=== PATIENT | female | born 1960 | race African-American/Black ===

== ENCOUNTER 2016-09-28 06:16 | Day surgery (SDC) | payer BC ==
--- NOTE | ~2016-09-28 | OP ---
Record Of Operation [facility] [address] [facility] [place]. [address] NAME: KODY GAUTHIER : 58 STATUS : REG [facility]#: [id number] AGE: 56 ADM/REG DATE : 09/28/16 MR#: [id number] REPORT SERV DATE: 09/28/16 DICTATED BY: MARISEL ALEXANDRE DATE: 09/28/16 REPORT STATUS : Draft TRANSCRIBED BY: MODL DATE: 09/28/16 DATE OF PROCEDURE: 09/28/2016 SURGEON: Marisel Alexandre MD. SERVICE: Otolaryngology. PREOPERATIVE DIAGNOSIS: Poorly-differentiated thyroid carcinoma. POSTOPERATIVE DIAGNOSIS: Poorly differentiated thyroid carcinoma. PROCEDURES PERFORMED: 1. Right completion thyroidectomy. 2. Central neck dissection. 3. NIMs monitoring. INDICATIONS FOR PROCEDURE: The patient is a 56-year-old female with a recent diagnosis of poorly-differentiated thyroid carcinoma status post left lobectomy in August 2016. She has undergone workup including PET-CT scan as well as bilateral FNA biopsies of level 2 lymph nodes in her neck. There is no evidence of distant metastasis at this time. She presents for completion thyroidectomy as well as central neck dissection. ANESTHESIA: General endotracheal with NIMs monitoring system. ESTIMATED BLOOD LOSS: 20 mL. RETAINED ITEMS: None. COMPLICATIONS: None. SPECIMENS: 1. Right hemithyroid. 2. Central compartment lymph nodes. DESCRIPTION OF PROCEDURE: The patient was identified in the preoperative holding, where informed consent was ensured. She was brought to the operating room, placed on the operating table in supine position. General endotracheal anesthesia was induced with a GlideScope, and direct placement of NIMs monitoring system was confirmed. A time-out was performed to identify the patient and discuss operative plan. The patient was prepped and draped in the standard sterile surgical fashion for this procedure. Prior to proceeding, ground electrodes were placed in the patient's anterior chest wall and secured with adhesive. The NIMs monitor electrodes were affixed into the appropriate channels. The left and right larynx were finger-tapped and responded appropriately with audible sound. The NIMs monitoring system was used for the remainder of the procedure to monitor activity of the recurrent laryngeal nerves. Record Of Operation [facility] 5 [facility] [place]. [address] NAME: KODY GAUTHIER : 58 STATUS : [place] [facility] [place] [id number] AGE: 56 ADM/REG DATE : 09/28/16 MR#: [id number] REPORT SERV DATE: 09/28/16 DICTATED BY: MARISEL ALEXANDRE DATE: 09/28/16 REPORT STATUS : Draft TRANSCRIBED BY: GAUDENCIO DATE: 09/28/16 A planned incision was made through the pre-existing neck incision. This was injected with 6 mL of 1% lidocaine with 1:100,000 epinephrine and allowed to take full effect. A 15 blade was used to perform an incision into the subcutaneous tissue. There was significant scarring visualized. A very small subplatysmal plane was elevated in the circumferential fashion, although this muscle was quite wispy. The midline raphe was identified with some difficulty, and the strap muscles were retracted over the right thyroid gland. The right thyroid capsule was encountered with some difficulty due to adherence of overlying strap muscles. The right thyroid gland was somewhat small measuring less than 4 cm. A combination of sharp and blunt dissection was used to free all overlying fascia and strap muscles from the thyroid gland. Attention was turned to the right superior pole. Using Kittner and gentle retraction, the superior thyroid pole vessels were brought into direct view. A space was established between the cricothyroid muscle and the superior thyroid pole, and Harmonic scalpel was employed to ligate the superior thyroid pole vessels. We continued to use a combination of sharp and blunt dissection to establish a plane on the under surface of the thyroid towards the trachea. The middle thyroid vein was identified and ligated. The inferior thyroid pole was also freed. There was no evidence of parathyroid glands during this portion of the procedure. The thyroid gland itself was retracted in an vivian-superficial fashion off the anterior surface of the trachea. We then proceeded to search for the recurrent laryngeal nerve. It was identified as it entered the cricoarytenoid joint in its standard location. It was kept down in the surgical bed. All overlying thyroid tissue and fascia were resected off the nerve. Once at an adequate distance from the nerve on the anterior surface of the trachea, Bovie cautery was used to free the remaining thyroid gland from the anterior surface of the trachea. This was carried distally toward the contralateral side ensuring that all isthmus was removed. The right thyroid lobe was then sent for permanent analysis. We then proceeded to perform a central neck dissection. The recurrent laryngeal nerve was traced distally and towards the innominate artery. The fiber fatty tissue was grasped off the anterior surface of the trachea extending to the level of the innominate artery. This was removed from the paratracheal region between the trachea and the recurrent laryngeal nerve. Additionally, an additional specimen was taken from between the recurrent laryngeal nerve and the carotid artery. This was sent for routine analysis. Upon conclusion of this portion of the procedure, the innominate artery could be readily visualized. We then proceeded to close the wound. A Valsalva maneuver was performed prior to the closure. There was no evidence of additional bleeding. The recurrent laryngeal nerve was stimulated at 1 milliamp at 104 microvolts. Wound closure was then ensued. Sander powder was placed in the wound bed after copious irrigation. Strap muscles were reapproximated with 3-0 Vicryl sutures in an interrupted fashion. Deep dermal sutures were placed with 3-0 Vicryl sutures in an interrupted fashion. Finally, the skin was reapproximated with a 5-0 Monocryl in a running subcuticular fashion. Steri-Strips were placed over the wound. The patient was cleaned of all preparation and turned over to Anesthesia for awakening and extubation. She was transferred to the PACU in stable condition. Prior to transfer, a rapid PTH was drawn. Her preoperative PTH was approximately 76. DISPOSITION: The patient will be monitored in the PACU. If PTH is abnormal, she may require Record Of Operation [address] [address] NAME: KODY GAUTHIER : 58 STATUS : REG [facility]#: [id number] AGE: 56 ADM/REG DATE : 09/28/16 MR#: [id number] REPORT SERV DATE: 09/28/16 DICTATED BY: MARISEL ALEXANDRE DATE: 09/28/16 REPORT STATUS : Draft TRANSCRIBED BY: MODL DATE: 09/28/16 admission. She may also require calcium supplementation, but this will be decided based upon her postoperative PTH. Regarding followup, she will need to have a clinic appointment approximately in one week. /GAUDENCIO Marisel Alexandre MD / [id number] CC: MD Christina Negron D.O.
[~2016-09-28 06:16] MED LIST: ASAB PO; HYDROCHLOROT12.5 MG PO; PRAVAC PO; TWYNSTA PO
[2016-09-28 06:51] LABS: BASOPHILS 0.5 %; BASOPHILS ABSOLUTE 0.03 10/3/uL (0.0-0.16); EOSINOPHILS 3.9 %; EOSINOPHILS ABSOLUTE 0.22 10/3/uL (0.0-0.53); HEMATOCRIT 39.7 % (36.0-48.0); HEMOGLOBIN 13.1 g/dL (12.0-16.0); IMMATURE GRANULOCYTES 0.2 %; IMMATURE GRANULOCYTES ABSOLUTE 0.01 10/3/uL (0.0-0.11); LYMPHOCYTES 25.3 %; LYMPHOCYTES ABSOLUTE 1.41 10/3/uL (0.67-4.30); MEAN CORPUSCULAR HEMOGLOB 26.4 pg (26.0-34.0); MEAN PLATELET VOLUME 9.3 fL (9.2-13.0); MONOCYTES ABSOLUTE 0.39 10/3/uL (0.21-1.20); NEUTROPHILS 63.1 %; NEUTROPHILS ABSOLUTE 3.52 10/3/uL (2.02-8.40); PLATELET COUNT 347 10/3/uL (150-400); RBC DISTRIBUTION WIDTH 15.3 % (12.0-16.0); RED CELL COUNT 4.96 10/6/uL (4.0-5.6); WHITE BLOOD CELLS 5.6 10/3/uL (4.5-10.5)
[2016-09-28 06:52] LABS: MANUAL DIFF NO %
[2016-09-28 06:59] LABS: PARTIAL THROMBO TIME 29.1 SEC (22.5-37.2)
[2016-09-28 07:04] LABS: BUN (BLOOD UREA NITROGEN) 11 MG/DL (6-23); CALCIUM, SERUM 8.9 MG/DL (8.5-10.4); CHLORIDE, SERUM 106 MMOL/L (96-112); CO2 (CARBON DIOXIDE) 24 MMOL/L (24-34); CREATININE 0.92 MG/DL (0.55-1.02); GFR AFRICAN AMERICAN 80 ML/MIN (>=60); GFR NON AFRICAN AMERICAN 69 ML/MIN (>=60); GLUCOSE, SERUM 107 MG/DL (60-99); POTASSIUM, SERUM 3.8 MMOL/L (3.5-5.3); SODIUM, SERUM 142 MMOL/L (135-148)
[2016-09-28 08:20] LABS: PTH (INTRAOPERATIVE) 79.7 PG/ML (10.0-65.0); PTH TAT 0 Hrs 00 Mins
[2016-09-28 09:36] LABS: PTH TAT 0 Hrs 00 Mins
== END 2016-09-28 14:05 | disposition home or self-care (01) ==
LOC: SDC 06:16
PROVIDERS: Otolaryngology
PROC: 0GBH0ZZ Excision of Right Thyroid Gland Lobe, Open Approach (ICD-10-PCS; principal; 2016-09-28 07:15)
DX: C73 Malignant neoplasm of thyroid gland (principal); E66.01 Morbid (severe) obesity due to excess calories; I10 Essential (primary) hypertension; I50.9 Heart failure, unspecified; Z68.42 Body mass index [BMI] 45.0-49.9, adult; Z79.899 Other long term (current) drug therapy; Z79.82 Long term (current) use of aspirin
CPT/HCPCS: 80048; 82330; 83970; 85025; 85610; 85730; 88307; 88341; 88342; 93005; A9270-GY; J0690; J2250; J2405; J2710; J3010